=== PATIENT | female | born 1965 ===

== ENCOUNTER 2022-02-07 06:33 | Day surgery (SDC) | payer OTHER ==
[~2022-02-07 06:33] MED LIST: AVALIDE; KEVZARA200 MG/1.2 SQ
== END 2022-02-07 15:50 | disposition home or self-care (01) ==
LOC: CIR.AMB 06:33
PROVIDERS: ATTEND Obstetrics & Gynecology
DX: R87.612 Low grade squamous intraepithelial lesion on cytologic smear of cervix (LGSIL) (principal); Z88.8 Allergy status to other drugs, medicaments and biological substances; I10 Essential (primary) hypertension

== ENCOUNTER 2022-09-20 11:13 | Inpatient (IN) | payer OTHER ==
[~2022-09-20] VITALS: Ht 170.2 cm; Wt 88.0 kg
[2022-09-20] MEDS ORDERED: [UNRECOGNIZED DRUG - OTHER] PO (12:06)
[2022-09-20] MEDS ORDERED: WELLBUTRIN XL300 MG PO (12:06)
[2022-09-20] MEDS ORDERED: ALLEGRA ALLERG180 MG PO (12:07)
[2022-09-20] MEDS ORDERED: LATUDA40 MG PO (12:07)
[2022-09-20] MEDS ORDERED: PLAQUENIL PO (12:08)
[2022-09-27] MEDS ORDERED: IRBESARTAN-HCT1 EACH (08:13)
[2022-09-27] MEDS ORDERED: LATUDA60 MG (08:13)
[2022-09-27] MEDS ORDERED: KEVZARA200 MG/1.2 (08:13)
[2022-09-27] MEDS ORDERED: BUPROPION HCL150 M1 (08:13)
[2022-09-27] MEDS ORDERED: TRAZODONE HCL100 MG (08:13)
[2022-09-27] MEDS ORDERED: HYDRODIURIL12.5 MG (08:13)
[2022-09-27] MEDS ORDERED: CLONAZEPAM2 MG (08:14)
[2022-09-27] MEDS ORDERED: BUDESONIDE0.5 MG/21 (08:14)
[2022-09-27] MEDS ORDERED: HYDROXYCHLOROQ200 MG (08:15)
[2022-09-28] MEDS ORDERED: TRAM1TAB98 PO (10:54)
[2022-09-28] MEDS ORDERED: COLACE100 MG PO (10:54)
[2022-09-28] MEDS ORDERED: ZIPSOR25 MG PO (10:54)
== END 2022-09-28 11:50 | disposition home or self-care (01) | DRG 743 ==
LOC: EDSTATUS 12:15 → ADM 12:15 → OB/GYN 09-26 05:31 → O/R 09-26 05:31 → SURG 09-26 07:00 → OB/GYN 09-26 11:51 → SURG 09-26 12:15 → OB/GYN 09-28 11:50
PROVIDERS: ADMIT Obstetrics & Gynecology; ATTEND Obstetrics & Gynecology
PROC: 0UT70ZZ Resection of Bilateral Fallopian Tubes, Open Approach (ICD-10-PCS; 2022-09-26)
PROC: 0USG7ZZ Reposition Vagina, Via Natural or Artificial Opening (ICD-10-PCS; 2022-09-26)
PROC: 0UT90ZZ Resection of Uterus, Open Approach (ICD-10-PCS; principal; 2022-09-26 07:00)
DX: D25.1 Intramural leiomyoma of uterus (principal); N80.03 Adenomyosis of the uterus; N72 Inflammatory disease of cervix uteri; N84.0 Polyp of corpus uteri; N83.312 Acquired atrophy of left ovary; Z20.822 Contact with and (suspected) exposure to COVID-19; N73.6 Female pelvic peritoneal adhesions (postinfective)